=== PATIENT | female | born 1980 | race Caucasian/White ===

== ENCOUNTER → 2021-12-27 10:05 | Outpatient (BNVA) | payer BC, SELFPAY | PROVIDERS: PCP Family Medicine; Visit Provider Family Medicine | DX: F41.9 Anxiety disorder, unspecified (principal); F32.A Depression, unspecified; M79.7 Fibromyalgia; M62.830 Muscle spasm of back; M54.9 Dorsalgia, unspecified | CPT/HCPCS: 84443 ==

== ENCOUNTER 2021-12-28 11:14 | Outpatient (CLI) | payer BC, MEDICAID, SELFPAY ==
--- NOTE | 2021-12-28 11:34 | XR_ITS ---
WS: [email or web address] Exam: XR thoracic spine 2V [id number] Date/Time of Exam: 12/28/2021 11:34 AM Reason For Exam: M62.830 - Muscle spasm of back No fracture or dislocation. Mild spondylosis. Slight dextroscoliosis. Normal paraspinal soft tissue s tructures. XR/XR thoracic spine 2V [id number] IMPRESSION: 1. Minimal degenerative change and slight scoliosis. 2. No fracture or malalignment.
--- NOTE | 2021-12-28 11:34 | XR_ITS ---
WS: [email or web address] Exam: XR lumbar spine 2-3V* [id number] Date/Time of Exam: 12/28/2021 11:52 AM Reason For Exam: M62.830 - Muscle spasm of back No acute fracture or dislocation. Disc spaces are preserved. Levoscoliosis noted. Facet DJD at L5-S1. Posterior elements are otherwise intact. Mild DJD of the SI joints. XR/XR lumbar spine 2-3V* [id number] IMPRESSION: 1. No acute fracture or malalignment. 2. Levoscoliosis. Minimal degenerative changes.
== END 2021-12-28 11:15 | disposition home or self-care (01) ==
LOC: RAD 11:17
PROVIDERS: PCP Family Medicine; Visit Provider Family Medicine
DX: M62.830 Muscle spasm of back (principal); F32.A Depression, unspecified; F41.9 Anxiety disorder, unspecified; M79.7 Fibromyalgia
CPT/HCPCS: 72070; 72100

== ENCOUNTER → 2023-04-15 13:45 | Outpatient (BNVA) | payer BC, MEDICAID, SELFPAY | PROVIDERS: PCP Family Medicine; Visit Provider Nurse Practitioner | DX: N92.6 Irregular menstruation, unspecified (principal); F32.A Depression, unspecified; F41.9 Anxiety disorder, unspecified | CPT/HCPCS: 83001; 84443 ==

== ENCOUNTER → 2023-09-17 11:22 | Outpatient (BNVA) | payer OTHER, SELFPAY | PROVIDERS: PCP Family Medicine; Visit Provider Nurse Practitioner Family | DX: Z79.899 Other long term (current) drug therapy (principal); Z13.6 Encounter for screening for cardiovascular disorders; E55.9 Vitamin D deficiency, unspecified; F41.9 Anxiety disorder, unspecified; F32.A Depression, unspecified | CPT/HCPCS: 80053; 80061; 81003; 82306; 83036; 84443; 85025 ==

== ENCOUNTER → 2023-10-01 09:32 | Outpatient (BNVA) | payer OTHER, SELFPAY | PROVIDERS: PCP Family Medicine; Visit Provider Nurse Practitioner Family | DX: Z12.4 Encounter for screening for malignant neoplasm of cervix (principal) | CPT/HCPCS: 88175 ==

== ENCOUNTER → 2023-10-02 10:42 | Outpatient (BNVA) | payer OTHER, SELFPAY | PROVIDERS: PCP Family Medicine; Visit Provider Nurse Practitioner Family | DX: N89.8 Other specified noninflammatory disorders of vagina (principal) | CPT/HCPCS: 87070; 87205 ==

== ENCOUNTER 2023-10-09 10:53 | Outpatient (CLI) | payer OTHER, SELFPAY ==
--- NOTE | 2023-10-09 10:30 | MM_ITS ---
WS: [id number] SCREENING DIGITAL TOMOSYNTHESIS MAMMOGRAM WITH CAD HISTORY: Z79.899 - Other skilled nursing (current) drug therapy COMPARISON: None available. Bilateral CC and MLO with tomosynthesis views submitted. Synthetic mammography reviewed. Computer aid ed detection analyzed. Breast composition: There are scattered areas of fibroglandular density. No suspicious masses, microc alcifications or architectural distortion. IMPRESSION: MM/[place] [id number] BI-RADS: 1-Negative FOLLOW UP: 1 Year Follow-up
== END 2023-10-09 10:54 | disposition home or self-care (01) ==
LOC: MOBLMAM 10:58
PROVIDERS: PCP Nurse Practitioner Family; Visit Provider Nurse Practitioner Family
DX: Z12.31 Encounter for screening mammogram for malignant neoplasm of breast (principal)
CPT/HCPCS: 77063; 77067

== ENCOUNTER 2023-10-10 06:00 | Outpatient (RCR) | payer OTHER, SELFPAY | END 2023-11-03 23:59 | disposition home or self-care (01) | LOC: WPT 06:00 | PROVIDERS: PCP Nurse Practitioner Family; Visit Provider Nurse Practitioner Family | DX: M41.86 Other forms of scoliosis, lumbar region (principal) | CPT/HCPCS: 97110; 97161 ==

== ENCOUNTER → 2024-04-14 16:10 | Outpatient (BNVA) | payer OTHER, SELFPAY | PROVIDERS: PCP Nurse Practitioner Family; Visit Provider Nurse Practitioner Family | DX: Z20.822 Contact with and (suspected) exposure to COVID-19 (principal) | CPT/HCPCS: 87635 ==

== ENCOUNTER → 2024-10-22 08:43 | Outpatient (BNVA) | payer OTHER, SELFPAY | PROVIDERS: PCP Nurse Practitioner Family; Visit Provider Nurse Practitioner Family | DX: N95.9 Unspecified menopausal and perimenopausal disorder (principal); R09.81 Nasal congestion; L71.9 Rosacea, unspecified; F41.9 Anxiety disorder, unspecified; F32.A Depression, unspecified; E55.9 Vitamin D deficiency, unspecified; M54.50 Low back pain, unspecified; G89.29 Other chronic pain; R53.83 Other fatigue; D64.9 Anemia, unspecified; N91.2 Amenorrhea, unspecified; Z82.61 Family history of arthritis | CPT/HCPCS: 80053; 80061; 81003; 82607; 82670; 82746; 83001; 83002; 83036; 83550; 84144; 85025; 86038; 86200; 86431 ==

== ENCOUNTER 2024-11-04 10:21 | Outpatient (CLI) | payer OTHER, SELFPAY ==
--- NOTE | 2024-11-04 10:20 | MM_ITS ---
WS: [email or web address] BILATERAL 3D TOMOSYNTHESIS DIGITAL SCREENING MAMMOGRAPHY WITH CAD CLINICAL INFORMATION: Z12.31 - Encounter for screening mammogram for malignant ... HISTORY: Screening mammogram. No current complaints. COMPARISON: 10/09/2023 TECHNIQUE: Bilateral CC and MLO views. FINDINGS: Scattered fibroglandular densities bilaterally. No suspicious focal mass, asymmetry, calcifications, or architectural distortion. No evidence of malignancy. MM/MM scr tomosynthesis [id number] IMPRESSION: DENSITY: There are scattered areas of fibroglandular density. BI-RADS: 1 - Negative. FOLLOW UP: 1 Year Follow-up Recommend return to annual screening mammography.
== END 2024-11-04 10:22 | disposition home or self-care (01) ==
LOC: MOBLMAM 10:23
PROVIDERS: PCP Nurse Practitioner Family; Visit Provider Nurse Practitioner Family
DX: Z12.31 Encounter for screening mammogram for malignant neoplasm of breast (principal); R92.323 Mammographic fibroglandular density, bilateral breasts
CPT/HCPCS: 77063; 77067

== ENCOUNTER → 2024-12-01 11:05 | Outpatient (BNVA) | payer OTHER, SELFPAY | PROVIDERS: PCP Nurse Practitioner Family; Visit Provider Nurse Practitioner Women's Health | DX: N85.2 Hypertrophy of uterus (principal); D25.9 Leiomyoma of uterus, unspecified | CPT/HCPCS: 76830 ==

== ENCOUNTER 2024-12-11 13:22 | Outpatient (CLI) | payer OTHER, SELFPAY ==
[2024-12-11] MEDS: iohexol 350 mg/mL 500 mL Btl (per mL) IV (13:37)
[2024-12-11] MEDS: iohexol 350 mg/mL 500 mL Btl (per mL) PO (13:38)
--- NOTE | 2024-12-11 14:00 | CT_ITS ---
WS: [id number] CT ABDOMEN WITH CONTRAST HISTORY: K42.9 - Umbilical hernia without obstruction or gangrene Contiguous single phase 5 mm axial imaging performed to the abdomen. Oral contrast has been provided. Coronal and sagittal reformats are submitted. All CT scans at [facility] use at least one of these dose optimization techniques: automated exposure control; mA and/or kV adjustment per patient size (includes targeted exams where dose is matched to clinical indication); or iterative reconstruction. IV CONTRAST: Omnipaque 350; 100 mL IV. Oral contrast: Yes. DLP: 789.10 mGy.cm COMPARISON: None available. Lower thorax: Lung bases are clear. Heart is normal size. 2 Liver/biliary system: Normal size with no intrahepatic dilatation. Gallbladder: Well-distended gallbladder with stones likely. Pancreas: Normal size pancreas and pancreatic duct. No adjacent inflammation. Spleen: Granulomata. Normal size. Adrenal glands: Normal. Right kidney: Normal. Left kidney: Normal. Aorta: Normal. Lymphadenopathy: None. Free fluid: None. GI tract: Normal. Prior appendectomy. Abdominal wall: Umbilical hernia contains fat only. Orifice measures 3.6 cm. LEFT ovarian cyst 3.7 cm. Visualized osseous structures: Unremarkable. CT/CT abdomen w con* [id number] IMPRESSION: 1. Umbilical hernia containing fat only. Hernia measures 3.6 cm. 2. Cholelithiasis without acute cholecystitis. 3. Prior appendectomy.
== END 2024-12-11 13:23 | disposition home or self-care (01) ==
LOC: RAD 13:24
PROVIDERS: PCP Nurse Practitioner Family; Visit Provider Nurse Practitioner Family
DX: K42.9 Umbilical hernia without obstruction or gangrene (principal); K80.20 Calculus of gallbladder without cholecystitis without obstruction; Z98.890 Other specified postprocedural states; N83.202 Unspecified ovarian cyst, left side
CPT/HCPCS: 74160

== ENCOUNTER → 2025-01-05 11:37 | Outpatient (BNVA) | payer OTHER, SELFPAY | PROVIDERS: PCP Nurse Practitioner Family; Referring Provider Nurse Practitioner Family; Visit Provider Internal Medicine Rheumatology | DX: Z79.899 Other long term (current) drug therapy (principal) | CPT/HCPCS: 36415; 82306; 83520; 85651; 86140; 86160; 86162; 86235; 86255; 86376; 86480; 86704; 86803; 87340 ==

== ENCOUNTER → 2025-01-06 08:43 | Day surgery (SDC) | payer OTHER, SELFPAY ==
[2025-01-06] VITALS (11 sets, daily range): BP systolic 103–141; BP diastolic 75–93; PULSE 79–106; RESP 10–24; TEMP 36.1–36.4; O2SAT 99–100; BMI 45.6
--- NOTE | 2025-01-06 09:11 | W.PM.OPSUD ---
Surgery/Procedure H&P Update DATE OF PROCEDURE: January 06, 2025 DATE H&P PERFORMED: 12/24/24 H&P UPDATE INFORMATION: I have reviewed H&P completed within last 30 days, I have examined patient prior to procedure and No changes to prior documentation PLANNED PROCEDURE: Operation Date: 01/06/25 10:15 Proposed Procedures p Open Umbilical Hernia Repair w/ Mesh(Not Applicable) - Jarad Gonzalez MD
[2025-01-06] MEDS: sodium chloride 0.9% 1,000 ML 30 ML IV (09:31)
[2025-01-06] MEDS: scopolamine 1 mg PATCH 1 PATCH TRANSDERMA (09:42)
[2025-01-06 09:47] LABS: OR HCG Qualitative Urine Negative (Negative)
--- NOTE | 2025-01-06 10:36 | ANES.PREANE2 ---
Pre-Anesthetic Assessment Height/Weight: Height 5 ft 5 in Weight 274 lb BP O2 Del Method 135/82 Room Air 01/06/25 09:42 01/06/25 09:08 Preop Diagnosis: Umbilical hernia Operation Date: 01/06/25 10:15 Proposed Procedures p Open Umbilical Hernia Repair w/ Mesh(Not Applicable) - Jarad Gonzalez MD Was Beta Suzanne taken within 24 hours: N/A Was Clonidine taken within 24 hours: N/A Last intake: Intake Last Liquid Date 01/05/25 Last Liquid Time 23:45 Last Solid Date 01/05/25 Last Solid Time 22:45 Social No alcohol and No tobacco Exam alert, oriented x 3, clear to auscultation bilaterally and regular rate & rhythm Airway Submandibular: within normal limits Cervical ROM: within normal limits Mallampati: Class II Dentition: full Anesthetic Plan ASA status: 3 Anesthesia: General Other: No prior issues with anesthesia NPO since yesterday evening Patient has a history of GERD, on Pepcid Asthma, controlled with inhalers Patient has a positive LITA but was negative for rheumatoid arthritis. Fibromyalgia noted hCG negative METs greater than 4 Plan for general anesthesia Medications/Allergies Home Medications ?Medication ?Instructions ?Recorded ?Confirmed ?Last Taken ?Type albuterol sulfate 90 mcg/actuation 2 puff inhalation Q6H PRN 03/13/24 01/05/25 Unknown Rx aerosol inhaler (Ventolin HFA) shortness of breath or wheezing #8.5 grams duloxetine 20 mg capsule,delayed 20 mg PO DAILY 3 days #30 caps 10/22/24 01/05/25 01/04/25 Rx release metronidazole 0.75 % topical cream 1 applic topical BID 30 days #45 10/22/24 01/05/25 01/03/25 Rx grams oxybutynin chloride 5 mg 5 mg PO DAILY #30 tabs 10/28/24 01/05/25 01/03/25 Rx tablet,extended release 24 hr pseudoephedrine HCl 30 mg tablet 60 mg (2 x 30 mg) PO BID PRN nasal 11/05/24 01/05/25 01/05/25 Rx (Sudafed) congestion 30 days #60 tabs estradiol 0.5 mg tablet 0.5 mg PO DAILY #90 tabs 11/09/24 01/05/25 01/05/25 Rx progesterone micronized 100 mg 100 mg PO BEDTIME #90 caps 11/09/24 01/05/25 01/04/25 Rx capsule baclofen 10 mg tablet 10 mg PO DAILY 01/05/25 01/05/25 01/04/25 History famotidine 20 mg tablet 20 mg PO BID 01/05/25 01/05/25 01/05/25 History hydroxychloroquine 200 mg tablet 200 mg PO BID #60 tabs 01/05/25 01/05/25 Unknown Rx meloxicam 7.5 mg tablet 7.5 mg PO DAILY 01/05/25 01/05/25 01/05/25 History prednisone 20 mg tablet See Rx Instructions PO .COMPLEX 01/05/25 01/05/25 Unknown Rx PRN joint pain flare #30 tabs pregabalin 100 mg capsule (Lyrica) 100 mg PO BID #60 caps 01/05/25 01/05/25 Unknown Rx valacyclovir 1 gram tablet 1 mg PO DAILY PRN blister 01/05/25 01/05/25 Unknown History Allergies Allergy/AdvReac Type Severity Reaction Status Date / Time tramadol Allergy Intermediate SICK Verified 01/05/25 10:20 Latex, Natural Rubber Allergy ALGY-Rash Verified 01/06/25 09:27 Current Medications Generic Name Dose Route Start Last Admin Trade Name Freq PRN Reason Stop Dose Admin Sodium Chloride 1,000 mls @ 30 mls/hr 01/06/25 09:15 01/06/25 09:31 Sodium Chloride 0.9% IV 01/07/25 09:14 30 mls/hr .Q24H KELLEE Administration PFSH Anesthesia Medical History (Updated 01/05/25 @ 12:24 by Lorenzo Hebert MD) Immunization counseling High risk medication use Polyarthralgia Hernia, umbilical, with gangrene Umbilical hernia Positive LITA (antinuclear antibody) Pelvic pain Family history of rheumatoid arthritis Anemia Rosacea Sinus congestion Breast cancer screening by mammogram Anxiety and depression Menopausal disorder Amenorrhea Eustachian tube dysfunction Yeast dermatitis Lymphadenopathy Upper respiratory infection Chronic back pain Urinary incontinence Vitamin D deficiency Cervical cancer screening Fever blister Surgical History History of appendectomy S/P tubal ligation S/P appendectomy Family History Mother Diabetes Hypertension Brother Diabetes Denies family history of Colon cancer Ovarian cancer Heart disease Breast cancer Uterine cancer Stroke Social History (Updated 01/05/25 @ 10:21 by Pat Holloway LPN) Smoking and tobacco/nicotine status: former use of tobacco/nicotine Second hand smoke exposure: No Alcohol intake: never Female Reproductive History Para: 2 Spontaneous abortions: Yes
[2025-01-06] MEDS: ceFAZolin 3,000 MG in sodium chloride 0.9% (plus) 100 ML 200 MG IV (11:23)
[2025-01-06] MEDS: lidocaine-epi 1% 20 mL INJ INJECTION (11:43)
[2025-01-06] MEDS: BUPivacaine 0.25% INJ 10 mL INJECTION (11:43)
--- NOTE | 2025-01-06 12:03 | P.OP_ITS ---
Operative Report Date of procedure: January 06, 2025 Pre-op diagnosis: Umbilical hernia Post-op diagnosis: same Post-op findings: 2 cm umbilical hernia. Repaired using Ventralex ST 4.3 cm. Procedure done: Umbilical hernia repair using mesh Implants: Ventralex ST 4.3 cm Specimens removed/disposition: None Pathology: none sent Surgeon: Jarad Gonzalez MD [employer]: N/A Anesthesia: General Estimated blood loss (mL): 5 Complications: N/A Findings: 2 cm umbilical hernia. Repaired using Ventralex ST 4.3 cm. Brief History: 44-year-old female who presented with an umbilical hernia. Discussed risk and benefits and patient agreed to proceed with open umbilical hernia repair with mesh. Procedure: After obtaining consent patient was brought into the OR. SCDs on and working. Preoperative Ancef administered. General anesthesia was induced. The abdomen was prepped and draped in usual sterile fashion. Local infiltration using a combination of 1% lidocaine and 0.5% bupivacaine 10cc was done. A curvilinear incision was done at the umbilicus using a scalpel. Electrocautery was used to dissect down to the hernia sac. The hernia sac was dissected bluntly using a hemostat. Once the hernia sac was dissected circumferentially, it was dissected off the dermis and subcutaneous tissues using electrocautery. The hernia sac was inspected and contained fat only. The hernia sac and hernia contents were reduced back into the abdomen. The fascial edges were freshened up. The fascial defect measured [address] mesh 4.3 cm was used for the repair. Mesh was placed intraperitoneally. The fascia was closed over the mesh using 2-0 Ethibond in a running fashion. The flap of the mesh was incorporated during this closure. Afsaneh's layer was closed using 3-0 Vicryl in a running fashion. Deep dermal layer was closed using 3-0 Vicryl in a running fashion. Skin was closed using 4-0 Monocryl in a running fashion. Surgical glue was applied. A sterile dressing was applied. The patient woke up from anesthesia without any complications.
[2025-01-06] MEDS: oxyCODONE 5 mg IR Tab/Cap PO (13:12)
--- NOTE | 2025-01-06 13:25 | ANE.PACU2 ---
Inpatient post-anesthesia follow up: Airway intact: Yes Vital signs: Temperature 97.5 F Pulse Rate 84 Respiratory Rate 18 Blood Pressure 141/83 Pulse Oximetry 99 Oxygen Delivery Me thod Room Air Oxygen Flow Rate 2 Fraction of Inspir ed Oxygen Hydration adequate: Yes Nausea and vomiting: No Pain level: 1 Mental status: Baseline
== END | disposition home or self-care (01) ==
PROVIDERS: Student in an Organized Health Care Education/Training Program; PCP Nurse Practitioner Family; Visit Provider Student in an Organized Health Care Education/Training Program
PROC: (CPT 49591; principal; 2025-01-06 10:05)
DX: K42.9 Umbilical hernia without obstruction or gangrene (principal); K21.9 Gastro-esophageal reflux disease without esophagitis; J45.909 Unspecified asthma, uncomplicated; M79.7 Fibromyalgia; Z87.891 Personal history of nicotine dependence
CPT/HCPCS: 49591; 81025; C1781; J0690; J1100; J1885; J2250; J2405; J2704; J2710; J3010; J3490; J7030; J9999

== ENCOUNTER 2025-03-02 09:43 | Inpatient (IN) | payer OTHER, SELFPAY ==
--- NOTE | 2025-02-22 13:47 | ANES.PREANE2 ---
Pre-Anesthetic Assessment Height/Weight: Height 1.65 m Operation Date: 03/02/25 07:00 Proposed Procedures p Total Abdominal Hysterectomy 93795 D25.9 N94.6(Not Applicable) - Eleazar Knight MD Familial anesthetic complications: None Was Beta Suzanne taken within 24 hours: N/A Was Clonidine taken within 24 hours: N/A Social No alcohol and No tobacco Exam alert, oriented x 3, clear to auscultation bilaterally and regular rate & rhythm GI Gastroesophageal Reflux Disease Metabolic Morbid Obesity [facility] Fibromyalgia Neuropsych Anxiety and Depression Anesthetic Plan ASA status: 2 Anesthesia: General Risk of > 500 ml blood loss (7ml/kg in children): No Medications/Allergies Home Medications ?Medication ?Instructions ?Recorded ?Confirmed ?Last Taken ?Type albuterol sulfate 90 mcg/actuation 2 puff inhalation Q6H PRN 03/13/24 02/22/25 Unknown Rx aerosol inhaler (Ventolin HFA) shortness of breath or wheezing #8.5 grams metronidazole 0.75 % topical cream 1 applic topical BID 30 days #45 10/22/24 02/22/25 02/22/25 Rx grams oxybutynin chloride 5 mg 5 mg PO DAILY #30 tabs 10/28/24 02/22/25 02/22/25 Rx tablet,extended release 24 hr pseudoephedrine HCl 30 mg tablet 60 mg (2 x 30 mg) PO BID PRN nasal 11/05/24 02/22/25 01/05/25 Rx (Sudafed) congestion 30 days #60 tabs estradiol 0.5 mg tablet 0.5 mg PO DAILY #90 tabs 11/09/24 02/22/25 02/22/25 Rx progesterone micronized 100 mg 100 mg PO BEDTIME #90 caps 11/09/24 02/22/25 02/21/25 Rx capsule baclofen 10 mg tablet 10 mg PO DAILY 01/05/25 02/22/25 02/21/25 History famotidine 20 mg tablet 20 mg PO BID 01/05/25 02/22/25 02/22/25 History hydroxychloroquine 200 mg tablet 200 mg PO BID #60 tabs 01/05/25 02/22/25 02/22/25 Rx meloxicam 7.5 mg tablet 7.5 mg PO DAILY 01/05/25 02/22/25 01/05/25 History valacyclovir 1 gram tablet 1 mg PO DAILY PRN blister 01/05/25 02/22/25 Unknown History cholecalciferol (vitamin D3) 1,250 50,000 unit PO DAILY 90 days #12 01/10/25 02/22/25 Unknown Rx mcg (50,000 unit) capsule caps gabapentin 300 mg capsule 300 mg PO TID #90 caps 01/12/25 02/22/25 Unknown Rx duloxetine 20 mg capsule,delayed 20 mg PO DAILY 02/22/25 02/22/25 02/22/25 History release prednisone 20 mg tablet 20 mg PO DIRECTED PRN joint 02/22/25 02/22/25 Unknown History pain flare Allergies Allergy/AdvReac Type Severity Reaction Status Date / Time tramadol Allergy Intermediate SICK Verified 01/21/25 13:55 Latex, Natural Rubber Allergy ALGY-Rash Verified 01/21/25 13:55 [facility] Anesthesia Medical History Immunization counseling High risk medication use Polyarthralgia Hernia, umbilical, with gangrene Umbilical hernia Positive LITA (antinuclear antibody) Pelvic pain Family history of rheumatoid arthritis Anemia Rosacea Sinus congestion Breast cancer screening by mammogram Anxiety and depression Menopausal disorder Amenorrhea Eustachian tube dysfunction Yeast dermatitis Lymphadenopathy Upper respiratory infection Chronic back pain Urinary incontinence Vitamin D deficiency Cervical cancer screening Fever blister Surgical History History of appendectomy S/P tubal ligation S/P appendectomy Family History Mother Diabetes Hypertension Brother Diabetes Denies family history of Colon cancer Ovarian cancer Heart disease Breast cancer Uterine cancer Stroke Social History Smoking and tobacco/nicotine status: never used tobacco/nicotine Second hand smoke exposure: No Alcohol intake: never Female Reproductive History Para: 2 Spontaneous abortions: Yes
--- NOTE | 2025-03-01 18:45 | W.PM.OPSFHP ---
Same Day Surgery H&P Indication for Procedure/HPI DATE OF PROCEDURE: March 01, 2025 CHIEF COMPLAINT/INDICATIONFOR SURGICAL PROCEDURE: menorrhagia and dysmenorrhea PREOP DIAGNOSIS: menorrhagia and dysmenorrhea PLANNED PROCEDURE: Operation Date: 03/02/25 07:00 Proposed Procedures p Total Abdominal Hysterectomy 46349 D25.9 N94.6(Not Applicable) - Eleazar Knight MD 44 y.o. h/o BTL h/o painful and heavy periods now scheduled for hysterectomy Medications/Allergies* Home Medications ?Medication ?Instructions ?Recorded ?Confirmed ?Type baclofen 10 mg tablet 10 mg PO DAILY 01/05/25 02/22/25 History famotidine 20 mg tablet 20 mg PO BID 01/05/25 02/22/25 History meloxicam 7.5 mg tablet 7.5 mg PO DAILY 01/05/25 02/22/25 History valacyclovir 1 gram tablet 1 mg PO DAILY PRN blister 01/05/25 02/22/25 History duloxetine 20 mg capsule,delayed 20 mg PO DAILY 02/22/25 02/22/25 History release prednisone 20 mg tablet 20 mg PO DIRECTED PRN joint 02/22/25 02/22/25 History pain flare Allergies/Adverse Reactions Allergy/AdvReac Type Severity Reaction Status Date / Time tramadol Allergy Intermediate SICK Verified 01/21/25 13:55 Latex, Natural Rubber Allergy ALGY-Rash Verified 01/21/25 13:55 Pertinent History/Comorbid Conditions* Medical History (Updated 01/05/25 @ 12:24 by Lorenzo Hebert MD) Immunization counseling High risk medication use Polyarthralgia Hernia, umbilical, with gangrene Umbilical hernia Positive LITA (antinuclear antibody) Pelvic pain Family history of rheumatoid arthritis Anemia Rosacea Sinus congestion Breast cancer screening by mammogram Anxiety and depression Menopausal disorder Amenorrhea Eustachian tube dysfunction Yeast dermatitis Lymphadenopathy Upper respiratory infection Chronic back pain Urinary incontinence Vitamin D deficiency Cervical cancer screening Fever blister Surgical History (Updated 10/15/23 @ 11:22 by MICKI Cochran) History of appendectomy S/P tubal ligation S/P appendectomy Family History (Updated 11/05/24 @ 10:52 by Ruth Ann Baker [facility]) Diabetes Mother Brother Hypertension Mother Denies family history of Colon cancer Ovarian cancer Heart disease Breast cancer Uterine cancer Stroke Social History Smoking and tobacco/nicotine status: never used tobacco/nicotine Second hand smoke exposure: No Alcohol intake: never Pertinent Exam Findings alert, oriented x 3, clear to auscultation bilaterally and regular rate & rhythm Pertinent Data Pap 10-01-23 NILM, negative HPV Pelvic sono 12-01-24 uterus 11.3 x 4.6 x 5.9 cm 3 cm fibroid Normal ovaries Recommendations Surgery/Procedure today Coding Level of Care Code Acute Code for Chg Fwd
[2025-03-02] VITALS (22 sets, daily range): BP systolic 110–163; BP diastolic 66–126; PULSE 71–98; RESP 12–19; TEMP 36.1–36.9; O2SAT 92–100; BMI 44.1
[2025-03-02 06:12] LABS: OR HCG Qualitative Urine Negative (Negative)
--- NOTE | 2025-03-02 06:19 | ANES.PREANE2 ---
Pre-Anesthetic Assessment Height/Weight: Height 5 ft 5 in Weight 265 lb Temp Pulse Resp BP Pulse Ox O2 Del Method 97.0 F L 82 17 132/95 99 Room Air 03/02/25 06:13 03/02/25 06:13 03/02/25 06:13 03/02/25 06:13 03/02/25 06:13 03/02/25 06:16 Preop Diagnosis: menorrhagia Operation Date: 03/02/25 07:00 Proposed Procedures p Total Abdominal Hysterectomy 14528 D25.9 N94.6(Not Applicable) - Eleazar Knight MD Was Beta Suzanne taken within 24 hours: N/A Was Clonidine taken within 24 hours: N/A Last intake: Intake Last Liquid Date 03/01/25 Last Liquid Time 23:30 Last Solid Date 03/01/25 Last Solid Time 21:30 Social No alcohol and No tobacco Exam alert, oriented x 3, clear to auscultation bilaterally and regular rate & rhythm Airway Submandibular: within normal limits Cervical ROM: within normal limits Mallampati: Class II Dentition: full Anesthetic Plan ASA status: 3 Anesthesia: General Other: No prior issues with anesthesia,recently had GA and did well(grade 1 view with MAC 3.0) NPO since yesterday evening Patient has a history of GERD, on Pepcid Asthma, controlled with inhalers Patient has a positive LITA but was negative for rheumatoid arthritis. Fibromyalgia noted hCG negative METs greater than 4 Plan for general anesthesia Medications/Allergies Home Medications ?Medication ?Instructions ?Recorded ?Confirmed ?Last Taken ?Type albuterol sulfate 90 mcg/actuation 2 puff inhalation Q6H PRN 03/13/24 02/22/25 Unknown Rx aerosol inhaler (Ventolin HFA) shortness of breath or wheezing #8.5 grams metronidazole 0.75 % topical cream 1 applic topical BID 30 days #45 10/22/24 02/22/25 02/22/25 Rx grams oxybutynin chloride 5 mg 5 mg PO DAILY #30 tabs 10/28/24 02/22/25 02/22/25 Rx tablet,extended release 24 hr estradiol 0.5 mg tablet 0.5 mg PO DAILY #90 tabs 11/09/24 02/22/25 02/22/25 Rx progesterone micronized 100 mg 100 mg PO BEDTIME #90 caps 11/09/24 02/22/2525 Rx capsule baclofen 10 mg tablet 10 mg PO DAILY 01/05/25 02/22/25 02/21/25 History famotidine 20 mg tablet 20 mg PO BID 01/05/25 02/22/25 02/22/25 History hydroxychloroquine 200 mg tablet 200 mg PO BID #60 tabs 01/05/25 02/22/25 02/22/25 Rx meloxicam 7.5 mg tablet 7.5 mg PO DAILY 01/05/25 02/22/25 01/05/25 History valacyclovir 1 gram tablet 1 mg PO DAILY PRN blister 01/05/25 02/22/25 Unknown History cholecalciferol (vitamin D3) 1,250 50,000 unit PO DAILY 90 days #12 01/10/25 02/22/25 Unknown Rx mcg (50,000 unit) capsule caps gabapentin 300 mg capsule 300 mg PO TID #90 caps 01/12/25 02/22/25 Unknown Rx duloxetine 20 mg capsule,delayed 20 mg PO DAILY 02/22/25 02/22/25 02/22/25 History release prednisone 20 mg tablet 20 mg PO DIRECTED PRN joint 02/22/25 02/22/25 Unknown History pain flare pseudoephedrine HCl 30 mg tablet 60 mg (2 x 30 mg) PO BID PRN nasal 02/22/25 03/02/25 03/01/25 Rx (Sudafed) congestion 30 days #60 tabs Allergies Allergy/AdvReac Type Severity Reaction Status Date / Time tramadol Allergy Intermediate SICK Verified 03/02/25 06:09 Latex, Natural Rubber Allergy ALGY-Rash Verified 03/02/25 06:09 [facility] Anesthesia Medical History Immunization counseling High risk medication use Polyarthralgia Hernia, umbilical, with gangrene Umbilical hernia Positive LITA (antinuclear antibody) Pelvic pain Family history of rheumatoid arthritis Anemia Rosacea Sinus congestion Breast cancer screening by mammogram Anxiety and depression Menopausal disorder Amenorrhea Eustachian tube dysfunction Yeast dermatitis Lymphadenopathy Upper respiratory infection Chronic back pain Urinary incontinence Vitamin D deficiency Cervical cancer screening Fever blister Surgical History History of appendectomy S/P tubal ligation S/P appendectomy Family History Mother Diabetes Hypertension Brother Diabetes Denies family history of Colon cancer Ovarian cancer Heart disease Breast cancer Uterine cancer Stroke Social History Smoking and tobacco/nicotine status: never used tobacco/nicotine Second hand smoke exposure: No Alcohol intake: never Female Reproductive History Para: 2 Spontaneous abortions: Yes
--- NOTE | 2025-03-02 06:44 | W.PM.OPSUD ---
Surgery/Procedure H&P Update DATE OF PROCEDURE: March 02, 2025 DATE H&P PERFORMED: 03/01/25 H&P UPDATE INFORMATION: I have reviewed H&P completed within last 30 days, I have examined patient prior to procedure and No changes to prior documentation PREOP DIAGNOSIS: menorrhagia PLANNED PROCEDURE: Operation Date: 03/02/25 07:00 Proposed Procedures p Total Abdominal Hysterectomy 38777 D25.9 N94.6(Not Applicable) - Eleazar Knight MD
[2025-03-02] MEDS: ceFAZolin 2,000 mg SDV 2000 MG IVP (07:12)
[2025-03-02] MEDS: metroNIDAZOLE IV 500 MG/100 ML PREMIX 100 MG IV (07:18)
[2025-03-02] MEDS: BUPivacaine liposome 13.3 mg/mL SDV 20 mL 266 MG INFILTRATI (09:20)
[2025-03-02] MEDS: BUPivacaine 0.5% INJ 30 mL INJECTION (09:20)
--- NOTE | 2025-03-02 09:52 | PM.OP2 ---
Brief Operative Note Date of procedure: 03/02/25 Pre-op diagnosis: menorrhagia, dysmenorrhea Post-op diagnosis: same Procedure Done: total abdominal hysterectomy, bilateral salpingectomy Surgeon: Eleazar Knight Estimated blood loss (mL): 200 Complications: none Post-op Plan: floor Condition: stable Disposition: PACU
[2025-03-02] MEDS: ondansetron 2 mg/ML SDV 2 mL 4 MG IVP (09:55)
[2025-03-02] MEDS: fentaNYL 50 mcg/mL INJ 2mL IVP (10:09)
--- NOTE | 2025-03-02 10:15 | P.OP_ITS ---
Operative Report Date of procedure: March 02, 2025 Pre-op diagnosis: chronic menorrhagia chronic dysmenorrhea Post-op diagnosis: same Post-op findings: uterus mildly enlarged Normal fallopian tubes Normal ovaries Normal and intact bladder A surgical clip placed during a prior surgery found near the left fallopian tube, sent to pathology Procedure done: Total abdominal hysterectomy Bilateral salpingectomy Implants: none Specimens removed/disposition: uterus bilateral fallopian tubes surgical clip, possible Falope ring Surgeon: Eleazar Knight MD Anesthesia: General Estimated blood loss (mL): 200 Complications: none Findings: uterus mildly enlarged Normal fallopian tubes Normal ovaries Normal and intact bladder A surgical clip placed during a prior surgery found near the left fallopian tube, sent to pathology Condition: stable Disposition: PACU Brief History: 44 y.o. with chronic menorrhagia and dysmenorrhea Procedure: Informed consent obtained. The patient was taken to the operating room and placed supine on the table. General endotracheal anesthesia was induced. The abdomen was prepped and draped in the usual sterile fashion. A castillo catheter was placed which drained clear urine. A pfannenstiel incision was made over an old scar and carried down through skin and subcutaneous tissue and fascia. The fascia was sharply incised. The rectus muscles were and the abdomen was entered bluntly in the midline. The pelvic contents were visualized and examined. An Zenon-O retractor was placed. The bowels were packed out of the way. The Ligasure device was used throughout for vessel sealing and cutting. The hysterectomy was begun by dividing and ligating the round ligaments bilaterally. The infundibulopelvic ligaments were divided and skeletonized bilaterally. The ovaries were preserved by dividing the uterus from the uteroovarian ligaments. The vesicouterine peritoneal fold was incised in a transverse curvilinear fashion and sharply dissected downward mobilizing the bladder off the lower uterine segment. The uterine vessels were skeletonized and bilaterally divided and ligated. The procedure was carried down on both sides of the uterus until the cardinal uterosacral ligament was reached. The cervix was then incised. The vaginal cuff was identified and the mucosa was from the cervix. In this fashion, the uterus was removed leaving the vaginal cuff. The vaginal cuff was identified and the mucosa was sewn with O-Vicryl. The fallopian tubes appeared normal. There was one loose metal clip near the left fallopian tube. This clip was sent to pathology. The fallopian tubes were excised using the Ligasure device. The pelvis was inspected and irrigated. There was no bleeding. The abdominal packs were removed as was the retractor. The fascia was then closed with a continuous stitch of O-Vicryl. The subcutaneous tissue was irrigated and ins pected for hemostasis. Interrupted stitches of 2-O Vicryl were placed in the subcutaneous tissue because of its thickness. The skin was then reapproximated using Insorb absorbable subcuticular skin jose. The patient was then extubated and taken to the recovery room. Postoperative condition: stable EBL: 200 cc Complications: none Sponge, needle, instruments counts were correct x two.
--- NOTE | 2025-03-02 10:43 | ANE.PACU2 ---
Inpatient post-anesthesia follow up: Airway intact: Yes Vital signs: Temperature 98.1 F Pulse Rate 76 Respiratory Rate 16 Blood Pressure 123/80 Pulse Oximetry 97 Oxygen Delivery Me thod Room Air Oxygen Flow Rate 2 Fraction of Inspir ed Oxygen Hydration adequate: Yes Nausea and vomiting: No Pain level: 1 Mental status: Baseline
--- NOTE | 2025-03-02 10:55 | PC.NURSE ---
1055 - accepted into room OB 10 with Neli RN - BP 110/66 - pulse 83 - 02 94% - temp 98.1 - pt in no distress upon this nurse exiting room
[2025-03-02] MEDS: HYDROcodone-acetaminophen 5-325 mg Tablet PO (11:05)
[2025-03-03 04:34] VITALS: BP 130/78; PULSE 92; RESP 15; TEMP 36.8; O2SAT 96
[2025-03-03 04:49] LABS: Hematocrit 27.3 % (36-47); Hemoglobin 8.80 g/dL (11.27-16.99); Mean Corpuscular HGB Conc 32.2 g/dL (30-55); Mean Corpuscular Hemoglobin 29.7 pg (27-33); Mean Corpuscular Volume 92.2 fl (85-98); Platelet Count 175 10^3/cmm (157-399); Red Blood Count 2.96 10^6/uL (3.85-5.65); White Blood Count 7.57 10^3/uL (3.29-11.43)
[2025-03-03 10:15] VITALS: BP 116/75; PULSE 85; RESP 16; TEMP 36.8; O2SAT 97
[2025-03-03 13:15] VITALS: BP 117/78; PULSE 89; RESP 16; TEMP 36.7; O2SAT 97
[2025-03-03] MEDS: HYDROcodone-acetaminophen 5-325 mg Tablet PO (13:21)
--- NOTE | 2025-03-03 14:05 | PM.OBGYPN ---
CERTIFIED HAND THERAPIST Subjective Subjective: Interval history: c/o mild abdominal pain, relieved with pain medications eating, voiding, ambulating well no bleeding / discharge Vitals/I&O/Wt Last Vital Signs Temp 98.1 F 03/03/25 13:15 Pulse 89 03/03/25 13:15 Resp 16 03/03/25 13:15 BP 117/78 03/03/25 13:15 Pulse Ox 97 03/03/25 13:15 O2 Del Method Room Air 03/03/25 10:15 O2 Flow Rate 2 03/02/25 10:42 Physical Exam Narrative: Comfortable, in no distress Awake, alert Afebrile, VS normal Lungs: clear Cor: RRR Abd: soft, nondistended, nontender Wound clean and dry Ext: normal Urinary Catheter Management: Petersne: Cath Placed During This Visit: yes, but has since been removed by the nurse Reason for Continuing Indwelling Catheter: Decision to DC Catheter Urinary Catheter Date of Insertion: 03/02/25 Urinary Catheter Time of Insertion: 07:15 Date Urinary Catheter Removed: 03/03/25 Time Urinary Catheter Discontinued: 04:34 Data 03/03/25 04:40 A&P Assessment and plan 1. S/P hysterectomy: s/p ZACH, bilateral salpingectomy POD #1 Doing well Plan discharge to home Call / return if fever, chills, abdominal pain, bleeding f/u in one week PDMP PDMP Reviewed: Last Reviewed 03/03/25 13:24 EDT by Eleazar Knight MD Attestations Medical Necessity Statement*: patient s/p hysterectomy, plan to discharge to home today Coding Level of Care Code Acute Code for Chg Fwd Diagnoses S/P hysterectomy Z90.710
--- NOTE | 2025-03-03 14:10 | PM.OBGYDC ---
Discharge Providers PROFESSOR [employer]ORICULTURE Date of Admission: 03/02/25 09:43 Date of Discharge: 03/03/25 Attending Provider at Admission: Eleazar Knight MD Attending Provider at Discharge: Eleazar Knight MD Consults: none Primary PROFESSOR [employer]: Eleazar Knight MD Primary Care Provider: MICKI Mills Diagnoses at Discharge Discharge Diagnosis 1. S/P hysterectomy: Details from hospital stay: 44 y.o. with h/o heavy and painful periods admitted for hysterectomy total abdominal hysterectomy and bilateral salpingectomy was done without any complications patient did well postoperatively and was discharged to home on the first postoperative day Reason for Visit Reason for Visit: D25.9 Brief History: 44 y.o. with h/o heavy and painful periods admitted for hysterectomy Hospital Course Hospital Course 44 y.o. with h/o heavy and painful periods admitted for hysterectomy total abdominal hysterectomy and bilateral salpingectomy was done without any complications patient did well postoperatively and was discharged to home on the first postoperative day Physical Exam Narrative: Comfortable, in no distress Awake, alert Afebrile, VS normal Lungs: clear Cor: RRR Abd: soft, nondistended, nontender Wound clean and dry Ext: normal Urinary Catheter Management: Petersen: Cath Placed During This Visit: yes, but has since been removed by the nurse Reason for Continuing Indwelling Catheter: Decision to DC Catheter Urinary Catheter Date of Insertion: 03/02/25 Urinary Catheter Time of Insertion: 07:15 Date Urinary Catheter Removed: 03/03/25 Time Urinary Catheter Discontinued: 04:34 History History History 4 Term 2 0 Miscarriages/Ectopic 2 Living Children 2 Discharge Data Studies Completed and Pending Completed Studies During Hospitalization Category Date Time Status Pathology: Surgical [PTH] Routine Pth 03/02/25 09:15 Completed Laboratory Results WBC 7.57 10^3/uL (3.29-11.43) 03/03/25 04:40 RBC 2.96 10^6/uL (3.85-5.65) L 03/03/25 04:40 Hgb 8.80 g/dL (11.27-16.99) L 03/03/25 04:40 Hct 27.3 % (36-47) L 03/03/25 04:40 MCV 92.2 fl (85-98) 03/03/25 04:40 MCH 29.7 pg (27-33) 03/03/25 04:40 MCHC 32.2 g/dL (30-55) 03/03/25 04:40 RDW 13.9 % (12.1-15.1) 03/03/25 04:40 Plt Count 175 10^3/cmm (157-399) 03/03/25 04:40 MPV 11.3 fL (7.4-10.4) H 03/03/25 04:40 Urine HCG, Qual Negative (Negative) 03/02/25 06:11 Blood Type A Positive 03/02/25 06:10 Rho(D) Type Rh positive 03/02/25 06:10 Antibody Screen Negative 03/02/25 06:10 Procedures Performed total abdominal hysterectomy and bilateral salpingectomy Vitals Last Vital Signs Temp 98.1 F 03/03/25 13:15 Pulse 89 03/03/25 13:15 Resp 16 03/03/25 13:15 BP 117/78 03/03/25 13:15 Pulse Ox 97 03/03/25 13:15 O2 Del Method Room Air 03/03/25 10:15 O2 Flow Rate 2 03/02/25 10:42 Results Labs OB ([facility]): Blood Type A Positive 03/02/25 Antibody Screen Negative 03/02/25 Hct, (36-47) 30.5 % L 03/22/25 Hgb, (11.27-16.99) 9.70 g/dL L 03/22/25 Rho(D) Type Rh positive 03/02/25 Plt Count, (157-399) 264 10^3/cmm 03/22/25 Hep Bs Antigen, (Nonreactive) Non-reactive 01/05/25 Hep B Core Total Ab, (Nonreactive) Non-reactive 01/05/25 Hepatitis C Antibody, (Nonreactive) Non-reactive 01/05/25 TSH, (0.27-4.20) 0.59 uIU/mL 09/17/23 Hemoglobin A1c, (4.0-6.0) 5.4 % 10/22/24 Progesterone 0.548 ng/mL 10/22/24 FSH 7.2 mIU/mL 10/22/24 Total Estradiol 40.6 pg/mL 10/22/24 Pap Smear Interpret See note 10/01/23 Discharge Plan Discharge Patient Disposition: Home Condition: Stable Prescriptions: Continued metronidazole 0.75 % cream 1 applic topical BID 30 Days Qty: 45 0RF estradiol 0.5 mg tablet 0.5 mg PO DAILY Qty: 90 1RF albuterol sulfate [Ventolin HFA] 90 mcg/actuation HFA aerosol inhaler 2 puff inhalation Q6H PRN (Reason: shortness of breath or wheezing) Qty: 8.5 0RF oxybutynin chloride 5 mg tablet extended release 24hr 5 mg PO DAILY Qty: 30 5RF cholecalciferol (vitamin D3) 1,250 mcg (50,000 unit) capsule 50,000 unit PO DAILY 90 Days Qty: 12 1RF pseudoephedrine HCl [Sudafed] 30 mg tablet 60 mg PO BID PRN (Reason: nasal congestion) 30 Days Qty: 60 2RF Rx Instructions: Take as needed valacyclovir 1 gram tablet 1 mg PO DAILY PRN (Reason: blister) Rx Instructions: 1 tab daily for five days and PRN with onset of outbreak of fever blister. orally daily; famotidine 20 mg tablet 20 mg PO BID Rx Instructions: TAKE 1 TABLET BY MOUTH TWICE DAILY prednisone 20 mg tablet 20 mg PO DIRECTED PRN (Reason: joint pain flare) Rx Instructions: take 1 or 2 tab daily for up to 7 days as needed for arthritis flare PO PRN; duloxetine 20 mg capsule,delayed release(DR/EC) 20 mg PO DAILY Rx Instructions: TAKE 1 CAPSULE BY MOUTH DAILY No Action gabapentin 300 mg capsule 300 mg PO TID Qty: 90 5RF hydroxychloroquine 200 mg tablet 200 mg PO BID Qty: 180 1RF progesterone micronized 100 mg capsule See Rx Instructions .ROUTE .COMPLEX Qty: 90 0RF Dose Instruction: TAKE 1 CAPSULE BY MOUTH ONCE EVERY NIGHT AT BEDTIME Rx Instructions: TAKE 1 CAPSULE BY MOUTH ONCE EVERY NIGHT AT BEDTIME baclofen 10 mg tablet 10 mg PO DAILY Qty: 30 0RF Rx Instructions: TAKE 1 TABLET BY MOUTH TWICE DAILY NEEDED FOR PAIN Discharge Order = DC NOW: Discharge Order (Routine); Ordered 03/03/25 Ordered By: Eleazar Knight Referrals: Eleazar Knight MD [Physician, PROFESSOR OF [employer]IC[employer]] - 03/17/25 1:15 pm Discharge Diet: Usual diet Discharge Activity: Increase activity as tolerated Patient Instructions: Acute Wound Care (DC), Opioid Safety (DC), Hysterectomy (DC), OB Discharge Report, OB Food/Drug Interaction Guide, Opioid Safety, Post Anesthesia Care, Patient Portal & [place] Instructions Discharge Attestations PROF[employer]OR [employer] Time Spent in Discharge Care*: less than 30 min Coding Level of Care Code Acute Code for Chg Fwd Diagnoses S/P hysterectomy Z90.710
== END 2025-03-03 13:30 | disposition home or self-care (01) | DRG 742 ==
LOC: OBGYN 10:39
PROVIDERS: Student in an Organized Health Care Education/Training Program; Admitting Provider Obstetrics & Gynecology; PCP Nurse Practitioner Family; Visit Provider Obstetrics & Gynecology
PROC: 0UT90ZZ Resection of Uterus, Open Approach (ICD-10-PCS; CPT 58150; principal; 2025-03-02 07:00)
DX: N92.0 Excessive and frequent menstruation with regular cycle (principal); Z68.41 Body mass index [BMI] 40.0-44.9, adult; N88.8 Other specified noninflammatory disorders of cervix uteri; K21.9 Gastro-esophageal reflux disease without esophagitis; E66.01 Morbid (severe) obesity due to excess calories; M79.7 Fibromyalgia; F41.9 Anxiety disorder, unspecified; F32.A Depression, unspecified
CPT/HCPCS: 36415; 51702; 81025; 85027; 86850; 86900; 88307; A4216; J0666; J0690; J1100; J1171; J1885; J2250; J2405; J2704; J3010; J3490; J7030; J7121; J9999

== ENCOUNTER → 2025-03-22 11:44 | Outpatient (BNVA) | payer OTHER, SELFPAY | PROVIDERS: PCP Nurse Practitioner Family; Visit Provider Internal Medicine Rheumatology | DX: Z79.899 Other long term (current) drug therapy (principal); M79.7 Fibromyalgia; R76.8 Other specified abnormal immunological findings in serum | CPT/HCPCS: 36415; 80076; 82565; 85025; 85651; 86140 ==

== ENCOUNTER → 2025-04-28 08:13 | Outpatient (BNVA) | payer OTHER, SELFPAY | PROVIDERS: PCP Nurse Practitioner Family; Visit Provider Nurse Practitioner Family | DX: D64.9 Anemia, unspecified (principal) | CPT/HCPCS: 82607; 82728; 82746; 83550 ==

== ENCOUNTER → 2025-07-26 14:56 | Outpatient (BNVA) | payer MEDICAID, SELFPAY | PROVIDERS: PCP Nurse Practitioner Family; Visit Provider Internal Medicine Rheumatology | DX: M41.86 Other forms of scoliosis, lumbar region (principal); M41.34 Thoracogenic scoliosis, thoracic region; Z79.899 Other long term (current) drug therapy; D64.9 Anemia, unspecified; M25.78 Osteophyte, vertebrae; M47.894 Other spondylosis, thoracic region; M47.896 Other spondylosis, lumbar region | CPT/HCPCS: 36415; 72072; 72114; 80076; 82565; 82728; 83540; 83550; 85025; 85651; 86140 ==